=== PATIENT | female | born 1955 | race Caucasian/White ===

== ENCOUNTER 2022-12-28 14:09 | Emergency (ER) | payer MEDICARE, OTHER ==
[~2022-12-28] VITALS: Ht 157 cm; Wt 70.7 kg
--- NOTE | 2022-12-28 14:41 | ED Syncope ---
General Chief Complaint: Dizziness/Syncope Stated Complaint: PASSED OUT Nursing Triage Note: PT STATES SHE HAD TO STRAIN WHILE ATTEMPTING TO HAVE A BM. BECAME HOT/FLUSHED. WENT OUTSIDE AND BECAME DIZZY. PT PASSED OUT ET HITTING THE LEFT SIDE OF HER FORHEAD. PT WAS INC OF STOOL WHEN SHE PASSED OUT. PT STATES HER HEAD HURTS AND SHE STILL FEELS DIZZY. PT TAKES ASA DAILY. Source of Information: Patient Exam Limitations: No Limitations History of Present Illness Date Seen by Provider: Dec 28, 2022 Time Seen by Provider: 14:25 Allergies and Home Medications Allergies Coded Allergies: No Known Drug Allergies (Unverified , 12/28/22) Patient Home Medication List Home Medication List Reviewed: Yes Past Boyucyt-Jmyagr-Iamuui Hx Patient Social History Tobacco Use?: No Substance use?: No Alcohol Use?: Yes Alcohol Frequency: Rarely Physical Exam Vital Signs Vital Signs - First Documented 12/28/22 14:15 Temp 36.3 Pulse 62 Resp 19 B/P (MAP) 138/74 (95) Pulse Ox 97 O2 Delivery Room Air Capillary Refill : Less Than 3 Seconds Height, Weight, BMI Height: '" Weight: lbs. oz. kg; 28.00 BMI Method: Progress/Results/Core Measures Results/Orders Lab Results Laboratory Tests Test 12/28/22 14:30 12/28/22 14:31 12/28/22 16:13 Range/Units White Blood Count 11.7 H 4.3-11.0 10^3/uL Red Blood Count 4.58 3.80-5.11 10^6/uL Hemoglobin 13.6 11.5-16.0 g/dL Hematocrit 43 35-52 % Mean Corpuscular Volume 93 80-99 fL Mean Corpuscular Hemoglobin 30 25-34 pg Mean Corpuscular Hemoglobin Concent 32 32-36 g/dL Red Cell Distribution Width 13.8 10.0-14.5 % Platelet Count 312 130-400 10^3/uL Mean Platelet Volume 9.1 9.0-12.2 fL Immature Granulocyte % (Auto) 1 % Neutrophils (%) (Auto) 66 42-75 % Lymphocytes (%) (Auto) 23 12-44 % Monocytes (%) (Auto) 8 0-12 % Eosinophils (%) (Auto) 2 0-10 % Basophils (%) (Auto) 1 0-10 % Neutrophils # (Auto) 7.7 1.8-7.8 10^3/uL Lymphocytes # (Auto) 2.7 1.0-4.0 10^3/uL Monocytes # (Auto) 0.9 0.0-1.0 10^3/uL Eosinophils # (Auto) 0.2 0.0-0.3 10^3/uL Basophils # (Auto) 0.1 0.0-0.1 10^3/uL Immature Granulocyte # (Auto) 0.1 0.0-0.1 10^3/uL Sodium Level 136 135-145 MMOL/L Potassium Level 3.6 3.6-5.0 MMOL/L Chloride Level 103 98-107 MMOL/L Carbon Dioxide Level 21 21-32 MMOL/L Anion Gap 12 5-14 MMOL/L Blood Urea Nitrogen 17 7-18 MG/DL Creatinine 0.84 0.60-1.30 MG/DL Estimat Glomerular Filtration Rate 75 BUN/Creatinine Ratio 20 Glucose Level 147 H 70-105 MG/DL Calcium Level 9.0 8.5-10.1 MG/DL Corrected Calcium 8.8 8.5-10.1 MG/DL Magnesium Level 1.9 1.6-2.4 MG/DL Total Bilirubin 0.9 0.1-1.0 MG/DL Aspartate Amino Transf (AST/SGOT) 34 5-34 U/L Alanine Aminotransferase (ALT/SGPT) 32 0-55 U/L Alkaline Phosphatase 94 40-136 U/L Troponin I < 0.028 <0.028 NG/ML Total Protein 7.0 6.4-8.2 GM/DL Albumin 4.3 3.2-4.5 GM/DL Glucometer 141 H 70-110 MG/DL Thyroid Stimulating Hormone (TSH) 1.67 0.35-4.94 UIU/ML Free Thyroxine 0.86 0.70-1.48 NG/DL My Orders Orders - CHEL CHAN MD Ekg Tracing (12/28/22 14:25) Cbc And Automated Diff (12/28/22 14:39) Magnesium (12/28/22 14:39) Comprehensive Metabolic Panel (12/28/22 14:39) Monitor-Rhythm Ecg Trace Only (12/28/22 14:39) Ed Iv/Invasive Line Start (12/28/22 14:39) Troponin I [place] (12/28/22 14:39) Orthostatic Vital Signs (Adult (12/28/22 14:39) Ct Angio Head/Neck (12/28/22 14:41) Iohexol Injection (Omnipaque 350 Mg/Ml 1 (12/28/22 15:15) Received Contrast (Hold Metformin- Contr (12/28/22 15:15) Ns (Ivpb) 100 Ml (Sodium Chloride 0.9% 1 (12/28/22 15:15) Thyroid Stimulating Hormone (12/28/22 16:01) Free T4 (Free Thyroxine) (12/28/22 16:01) Acetaminophen Tablet (Acetaminophen Ta (12/28/22 16:30) Dipht/Pertuss(Acell)/Tet Adult (Dipht/Pe (12/28/22 16:45) Medications Given in ED Current Medications Medications Dose Ordered Sig/Julito Route Start Time Stop Time Status Last Admin Dose Admin Acetaminophen 1,000 mg ONCE ONCE PO 12/28/22 16:30 12/28/22 16:31 DC 12/28/22 16:41 1,000 MG Diphtheria/ Tetanus/Acell Pertussis 0.5 ml ONCE ONCE IM 12/28/22 16:45 12/28/22 16:46 DC 12/28/22 17:01 0.5 ML Iohexol 100 ml ONCE ONCE IV 12/28/22 15:15 12/28/22 15:16 DC 12/28/22 15:19 75 ML Sodium Chloride 100 ml ONCE ONCE IV 12/28/22 15:15 12/28/22 15:16 DC 12/28/22 15:19 80 ML Vital Signs/I&O 12/28/22 12/28/22 12/28/22 14:15 14:54 17:01 Temp 36.3 Pulse 62 63 57 62 74 Resp 19 16 B/P (MAP) 138/74 (95) 124/65 (84) 141/75 133/69 (90) 121/73 (89) Pulse Ox 97 97 O2 Delivery Room Air Blood Pressure Mean: 95 Initial ECG Impression Date: Dec 28, 2022 Initial ECG Impression Time: 14:31 Initial ECG Rate: 61 Initial ECG Rhythm: Normal Sinus Initial ECG Intervals: Normal Initial ECG Impression: Normal Comment Normal sinus rhythm with no ST elevation or depression. No abnormal intervals or axis deviation. Departure Impression Primary Impression: Syncope Qualified Codes: R55 - Syncope and collapse Additional Impressions: Forehead laceration Qualified Codes: S01.81XA - Laceration without foreign body of other part of head, initial encounter Thyroid nodule Disposition: 01 HOME, SELF-CARE Condition: Stable Departure-Patient Inst. Decision time for Depature: 16:47 Referrals: NO,LOCAL PHYSICIAN (PCP/Family) Primary Care Physician Patient Instructions: Syncope (fainting), Thyroid nodules, Vasovagal Response Add. Discharge Instructions: The CT imaging of your head and neck was unremarkable for injuries or narrowing of the arteries in your neck. Monitor your wound for signs of infection such as increasing redness, increasing swelling, puslike drainage, or fever. Return to care promptly if you notice the symptoms. The most likely cause of your syncope (fainting) is a vasovagal response. However, other causes of syncope have not been ruled out. Please discuss this with your primary care provider and deployment technician. They may recommend further work-up such as heart monitoring to evaluate this episode of syncope. Return to the emergency room if you are having repeated episodes of lightheadedness or syncope or if you develop new symptoms such as chest pain or shortness of breath. You had an incidental finding of a thyroid nodule on your CT scan. This may be harmless but should be followed and discussed with your primary care provider. Further studies may be necessary such as thyroid ultrasound or thyroid uptake scan. Thyroid labs including TSH and free T4 were obtained in the emergency room and were pending at the time of your discharge. Please review the results of these tests with your primary care provider. Please return to the emergency room if you have other worsening of symptoms or new symptoms that warrant urgent evaluation. All discharge instructions reviewed with patient and/or family. Voiced understanding. CHEL CHAN MD Dec 28, 2022 14:41
[2022-12-28 14:45] LABS: BASOPHILS # (AUTO) 0.1 10^3/uL (0.0-0.1); BASOPHILS % (AUTO) 1 % (0-10); EOSINOPHILS # (AUTO) 0.2 10^3/uL (0.0-0.3); EOSINOPHILS % (AUTO) 2 % (0-10); HEMATOCRIT 43 % (35-52); HEMOGLOBIN 13.6 g/dL (11.5-16.0); LYMPHOCYTES # (AUTO) 2.7 10^3/uL (1.0-4.0); LYMPHOCYTES % (AUTO) 23 % (12-44); MEAN CORPUSCULAR HEMOGLOBIN 30 pg (25-34); MEAN CORPUSCULAR HGB CONC 32 g/dL (32-36); MEAN CORPUSCULAR VOLUME 93 fL (80-99); MEAN PLATELET VOLUME 9.1 fL (9.0-12.2); MONOCYTES # (AUTO) 0.9 10^3/uL (0.0-1.0); MONOCYTES % (AUTO) 8 % (0-12); NEUTROPHILS # (AUTO) 7.7 10^3/uL (1.8-7.8); NEUTROPHILS % (AUTO) 66 % (42-75); PLATELET COUNT 312 10^3/uL (130-400); WHITE BLOOD COUNT 11.7 10^3/uL (4.3-11.0)
[2022-12-28 14:48] LABS: ALBUMIN 4.3 GM/DL (3.2-4.5)
[2022-12-28 14:49] LABS: CHLORIDE 103 MMOL/L (98-107); POTASSIUM 3.6 MMOL/L (3.6-5.0); SODIUM 136 MMOL/L (135-145)
[2022-12-28 14:51] LABS: GLUCOSE 147 MG/DL (70-105)
[2022-12-28 14:52] LABS: CARBON DIOXIDE 21 MMOL/L (21-32)
[2022-12-28 14:53] LABS: BILIRUBIN,TOTAL 0.9 MG/DL (0.1-1.0)
[2022-12-28 14:54] VITALS: BP_SYST 121; BP_SYST 124; BP_SYST 133; BP_DIAS 65; BP_DIAS 69; BP_DIAS 73
[2022-12-28 14:54] LABS: ALKALINE PHOSPHATASE 94 U/L (40-136)
[2022-12-28 14:55] LABS: CREATININE SERUM 0.84 MG/DL (0.60-1.30); GFR ESTIMATED 75
[2022-12-28 14:56] LABS: BUN/CREATININE RATIO 20
[2022-12-28 14:58] LABS: ALANINE AMINOTRANSFERASE 32 U/L (0-55); MAGNESIUM 1.9 MG/DL (1.6-2.4)
[2022-12-28] MEDS ORDERED: NS 100 ML (IVPB) BAG IV ONE (15:15)
[2022-12-28] MEDS ORDERED: IOHEXOL 350 MG/ML 100 ML (OMNIPAQUE 350) VIAL IV ONE (15:15)
[2022-12-28] MEDS ORDERED: HOLD METFORMIN - RECEIVED CONTRAST 20 ML VIAL IV SCH (15:15)
--- NOTE | 2022-12-28 15:40 | Diagnostic Imaging Report ---
PROCEDURE: CT angiography of the head and CT angiography of the neck with and without contrast. TECHNIQUE: Contiguous noncontrast images were obtained from the skull base through the vertex. After intravenous contrast administration, helical CT angiography of the neck was performed. Source data was reformatted into 3D MIP projections. Delayed post contrast acquisition was also obtained. Auto Exposure Controls were utilized during the CT exam to meet ALARA standards for radiation dose reduction. INDICATION: Dizziness and syncope. No prior studies are available for comparison. A precontrast head CT does show some swelling in the left frontal scalp. Ventricles and sulci are within normal limits. There is no sulcal effacement or midline shift. No acute intra-axial or extra-axial hemorrhage is detected. Cisterns are patent. Delayed postcontrast imaging through the brain is without evidence of an enhancing lesion. Note is made of a 14 mm low attenuation nodule right thyroid lobe. CT angiographic portion of the study demonstrates a normal branching pattern to the aortic arch. The right and left common carotid arteries appear to be widely patent. The right and left internal carotid arteries are widely patent. The right vertebral artery appears to be dominant. The distal left vertebral artery does appear to be very small but patent. Right vertebral artery is patent. Basilar is widely patent. The right and left posterior cerebral arteries are widely patent. Right and left anterior cerebral arteries are widely patent. The M1 and M2 branches of the right and left middle cerebral arteries appear to be patent. No thromboemboli or large vessel occlusion is identified. IMPRESSION: 1. Right thyroid nodule. 2. Left frontal scalp swelling. Otherwise unremarkable CT angiogram of the head and neck. No thromboemboli or large vessel occlusion is detected. Dictated by: Dictated on workstation # [id number]
[2022-12-28] MEDS ORDERED: ACETAMINOPHEN 500 MG TABLET PO ONE (16:30)
[2022-12-28] MEDS ORDERED: Tetanus/Diphtheria/Pertussis (Acell) ADULT Vaccine 0.5 ML IM ONE (16:45)
[2022-12-28 16:50] LABS: FREE T4 (FREE THYROXINE) 0.86 NG/DL (0.70-1.48)
[2022-12-28 17:01] VITALS: BP 141/75
== END 2022-12-28 17:01 | disposition home or self-care (01) ==
LOC: ER 14:16
DX: S01.81XA Laceration without foreign body of other part of head, initial encounter (principal); E04.1 Nontoxic single thyroid nodule; R55 Syncope and collapse; Z23 Encounter for immunization; Z79.82 Long term (current) use of aspirin; W26.8XXA Contact with other sharp object(s), not elsewhere classified, initial encounter
CPT/HCPCS: 36415; 70496; 70498; 80053; 82947; 83735; 84439; 84443; 84484; 85025; 90715; 93005; 93041